=== PATIENT | male | born 1955 | race African-American/Black ===

== ENCOUNTER 2017-11-20 16:48 | Emergency (ER) | payer SELFPAY ==
[2017-11-20] MEDS ORDERED: CLONIDINE HCL 0.2 MG TABLET PO ONE (17:58)
--- NOTE | 2017-11-20 18:00 | ER Document Report ---
ED Medical Screen (RME) - General Chief Complaint: High Blood Pressure Stated Complaint: BLOOD PRESSURE CONCERN Time Seen by Provider: 11/20/17 17:58 Mode of Arrival: Ambulatory Information source: Patient, Relative TRAVEL OUTSIDE OF THE [place] IN LAST 30 DAYS: No - HPI Patient complains to provider of: elevated BP Onset: This morning - pt ran out of his BP meds and his BP has been increased all day - Related Data Allergies/Adverse Reactions: No Known Allergies Allergy (Unverified 04/18/12 02:54) Past Medical History - Past Medical History Cardiac Medical History: Reports: Hx Hypertension Renal/ Medical History: Denies: Hx Peritoneal Dialysis - Immunizations Hx Diphtheria, Pertussis, Tetanus Vaccination: Yes Physical Exam - Vital signs Vitals: Temp Pulse Resp BP Pulse Ox 98.0 F 70 16 190/105 H 96 11/20/17 17:03 11/20/17 17:03 11/20/17 17:03 11/20/17 17:03 11/20/17 17:03 Course - Vital Signs Vital signs: Temp Pulse Resp BP Pulse Ox 98.0 F 70 16 190/105 H 96 11/20/17 17:03 11/20/17 17:03 11/20/17 17:03 11/20/17 17:03 11/20/17 17:03
[2017-11-20 19:01] LABS: APPEARANCE,URINE CLEAR; BILIRUBIN,URINE NEGATIVE (NEGATIVE); COLOR,URINE STRAW; GLUCOSE, URINE NEGATIVE (NEGATIVE); KETONES,URINE NEGATIVE (NEGATIVE); LEUKOCYTE ESTERASE,URINE NEGATIVE (NEGATIVE); NITRITE,URINE NEGATIVE (NEGATIVE); PROTEIN,URINE NEGATIVE (NEGATIVE); URINE SPECIFIC GRAVITY 1.009; UROBILINOGEN,URINE NEGATIVE mg/dL (<2.0)
[2017-11-20 19:01] LABS: ABSOLUTE BASOPHILS # (AUTO) 0.1 10^3/uL (0.0-0.2); ABSOLUTE EOSINOPHILS # (AUTO) 0.2 10^3/uL (0.0-0.6); ABSOLUTE LYMPHOCYTES (AUTO) 2.8 10^3/uL (0.5-4.7); ABSOLUTE MONOCYTES (AUTO) 0.6 10^3/uL (0.1-1.4); ABSOLUTE NEUT (AUTO) 3.6 10^3/uL (1.7-8.2); BASOPHILS % (AUTO) 0.9 % (0-2); EOSINOPHILS % (AUTO) 2.6 % (0-6); HEMATOCRIT 50.7 % (37.9-51.0); HEMOGLOBIN 17.1 g/dL (13.5-17.0); LYMPHOCYTES % (AUTO) 38.5 % (13-45); MEAN CORPUSCULAR HEMOGLOBIN 29.3 pg (27.0-33.4); MEAN CORPUSCULAR HGB CONC 33.7 g/dL (32.0-36.0); MEAN CORPUSCULAR VOLUME 87 fl (80-97); MONOCYTES % (AUTO) 7.7 % (3-13); PLATELET COUNT 142 10^3/uL (150-450); RED BLOOD COUNT 5.82 10^6/uL (4.35-5.55); RED CELL DISTRIBUTION WIDTH 14.2 % (11.5-14.0); SEGMENTED NEUTROPHILS % (AUTO) 50.3 % (42-78); TOTAL CELLS COUNTED % (AUTO) 100 %; WHITE BLOOD COUNT 7.2 10^3/uL (4.0-10.5)
[2017-11-20 19:16] LABS: ALANINE AMINOTRANSFERASE 28 U/L (21-72); ALBUMIN 4.7 g/dL (3.5-5.0); ALKALINE PHOSPHATASE 70 U/L (38-126); ANION GAP 13 (5-19); ASPARTATE AMINO TRANSFERASE 19 U/L (17-59); BILIRUBIN,DIRECT 0.1 mg/dL (0.0-0.4); BILIRUBIN,TOTAL 0.7 mg/dL (0.2-1.3); BLOOD UREA NITROGEN 13 mg/dL (7-20); CALCIUM 9.8 mg/dL (8.4-10.2); CARBON DIOXIDE 27 mmol/L (22-30); CHLORIDE 102 mmol/L (98-107); GLUCOSE 95 mg/dL (75-110); SODIUM 141.5 mmol/L (137-145); TOTAL PROTEIN 7.8 g/dL (6.3-8.2)
--- NOTE | 2017-11-20 21:06 | ER Document Report ---
ED Blood Pressure Problem - General Chief Complaint: High Blood Pressure Stated Complaint: BLOOD PRESSURE CONCERN Time Seen by Provider: 11/20/17 17:58 Mode of Arrival: Ambulatory Notes: The patient is a 62-year-old male, past medical history hypertension, presents after he ran out of his blood pressure medications 4 days ago and noticed that his blood pressure was high at home. He takes lisinopril 20 mg and follows at [facility] for his primary care. Patient has no symptoms at this time and denies shortness of breath, nausea, vomiting, fevers, back pain, headache, ataxia, blurry vision, chest pain, shortness of breath or syncope. TRAVEL OUTSIDE OF THE [place] IN LAST 30 DAYS: No - Related Data Allergies/Adverse Reactions: No Known Allergies Allergy (Unverified 04/18/12 02:54) Past Medical History - General Information source: Patient, Relative - Social History Smoking Status: Never Smoker Family History: Reviewed & Not Pertinent Patient has suicidal ideation: No Patient has homicidal ideation: No - Past Medical History Cardiac Medical History: Reports: Hx Hypertension Renal/ Medical History: Denies: Hx Peritoneal Dialysis - Immunizations Hx Diphtheria, Pertussis, Tetanus Vaccination: Yes Review of Systems - Review of Systems Notes: REVIEW OF SYSTEMS: CONSTITUTIONAL: -fevers, -chills EENT: -eye pain, -difficulty swallowing, -nasal congestion CARDIOVASCULAR: -chest pain, -syncope. RESPIRATORY: -cough, -SOB GASTROINTESTINAL: -abdominal pain, -nausea, -vomiting, -diarrhea GENITOURINARY: -dysuria, -hematuria MUSCULOSKELETAL: -back pain, -neck pain SKIN: -rash or skin lesions. HEMATOLOGIC: -easy bruising or bleeding. LYMPHATIC: -swollen, enlarged glands. NEUROLOGICAL: -altered mental status or loss of consciousness, -headache, - neurologic symptoms PSYCHIATRIC: -anxiety, -depression. ALL OTHER SYSTEMS REVIEWED AND NEGATIVE. Physical Exam - Vital signs Vitals: Temp Pulse Resp BP Pulse Ox 98.0 F 70 16 190/105 H 96 11/20/17 17:03 11/20/17 17:03 11/20/17 17:03 11/20/17 17:03 11/20/17 17:03 - Notes Notes: PHYSICAL EXAMINATION: GENERAL: Well-appearing, well-nourished and in no acute distress. HEAD: Atraumatic, normocephalic. EYES: Pupils equal round and reactive to light, extraocular movements intact, sclera anicteric, conjunctiva are normal. ENT: nares patent, oropharynx clear without exudates. Moist mucous membranes. NECK: Normal range of motion, supple without lymphadenopathy LUNGS: Breath sounds clear to auscultation bilaterally and equal. No wheezes rales or rhonchi. HEART: Regular rate and rhythm without murmurs ABDOMEN: Soft, nontender, normoactive bowel sounds. No guarding, no rebound. No masses appreciated. EXTREMITIES: Normal range of motion, no pitting or edema. No cyanosis. NEUROLOGICAL: Cranial nerves grossly intact. Normal speech, normal gait. Normal sensory and motor exams. PSYCH: Normal mood, normal affect. SKIN: Warm, Dry, normal turgor, no rashes or lesions noted. Course - Re-evaluation Re-evalutation: Patient with asymptomatic hypertension. Blood work sent from the front does not show any concerning abnormalities. He was given 0.1 mg clonidine prior to my evaluation and his blood pressure decreased down to 165/98. Will provide him with a refill of his lisinopril 20 mg and instructions to follow-up with his primary care provider at [facility]. - Vital Signs Vital signs: Temp Pulse Resp BP Pulse Ox 98.0 F 70 16 165/101 H 96 11/20/17 17:03 11/20/17 17:03 11/20/17 17:03 11/20/17 18:47 11/20/17 17:03 - Laboratory Result Diagrams: 11/20/17 18:35 11/20/17 18:35 Laboratory results interpreted by me: 11/20/17 18:35 RBC 5.82 H Hgb 17.1 H RDW 14.2 H Plt Count 142 L Discharge - Discharge Clinical Impression: Asymptomatic hypertension Condition: Stable Disposition: HOME, SELF-CARE Additional Instructions: HIGH BLOOD PRESSURE REQUIRING TREATMENT: Your blood pressure is high. This is called "hypertension." Today's reading was 165/98 (normal is less than 140/90). Your history and exam suggest that this is not a temporary problem. You need treatment of your blood pressure. If left untreated, high blood pressure greatly increases your risk of heart attack and stroke. Please don't ignore this problem. If you have blood pressure medicine but aren't using it regularly, start taking it again. Some simple things you can do to help are: Get some aerobic exercise for at least 20 minutes on a daily basis. (See your doctor before beginning any new exercise program.) Eat a low-fat diet. Lose excess weight. Avoid salty foods and avoid adding salt to any of the foods you eat. Avoid diet pills, decongestants, "energizing" herbs, and other medicines that elevate blood pressure. There are many different medicines that treat blood pressure. If your medication causes unpleasant side effects, call your doctor. There are others you can try. Treating hypertension is a life-long investment in your health. CLONIDINE (CATAPRES): Clonidine is blood-pressure medicine. It works in your brain, making the nervous system relax the blood vessels. This medicine can also be used for symptoms of narcotic withdrawal. Clonidine frequently causes dry mouth, drowsiness, and dizziness. These symptoms go away as you continue to use it. Rest for the first couple of days. Don't drive or use machinery until you're back to normal. Never stop clonidine suddenly! There can be a "rebound" severe increase in blood pressure, headache, and agitation. Be sure you always have enough of the medicine. Call the doctor if you have any new symptoms such as skin rash, weakness, severe lightheadedness, chest pain, headache, or depression. ANGIOTENSIN CONVERTING ENZYME INHIBITOR MEDICATION: "ROSALIA inhibitor" drugs are used to lower high blood pressure (or to reduce the "work" of the heart in patients with heart failure). These drugs block an enzyme that makes your blood vessels constrict and makes you retain salt. The result is lower blood pressure. ROSALIA inhibitors cause few side effects. The most common side effect is a dry nagging cough. Occasionally, lightheadedness may occur while you get used to the medicine. Some patients may retain extra potassium (this is a problem if you are taking potassium supplements, potassium-containing salt substitutes, or a potassium-retaining drug such as triamterene, spironolactone, or amiloride) . If you are taking lithium, the lithium level must be rechecked after starting an ROSALIA inhibitor. ROSALIA inhibitors should NOT be used during . Contact the doctor or return if you develop severe lightheadedness, wheeze , weakness, palpitations or other new symptoms. FOLLOW-UP CARE: If you have been referred to a physician for follow-up care, call the physician s office for an appointment as you were instructed or within the next two days. If you experience worsening or a significant change in your symptoms, notify the physician immediately or return to the Emergency Department at any time for re-evaluation. Prescriptions: Lisinopril 20 mg PO DAILY #30 tablet Forms: Elevated Blood Pressure Referrals: [facility] [Outside] - Follow up as needed
[2017-11-20 21:28] VITALS: BP 160/98
== END 2017-11-20 21:27 | disposition home or self-care (01) ==
LOC: ER 16:48
DX: I10 Essential (primary) hypertension (principal); T46.4X6A Underdosing of angiotensin-converting-enzyme inhibitors, initial encounter; Z91.128 Patient's intentional underdosing of medication regimen for other reason; Z91.14 Patient's other noncompliance with medication regimen
CPT/HCPCS: 36415; 80053; 81001; 85025; 99283